=== PATIENT | female | born 1995 | race Caucasian/White ===

== ENCOUNTER 2021-12-04 16:07 | Emergency (ER) | payer OTHER, SELFPAY ==
--- NOTE | ~2021-12-04 | US_ITS ---
EXAMINATION: US OB <=14 wk fetus w TV DATE: 12/04/2021 17:18 INDICATION: Vaginal bleeding. First trimester. TECHNIQUE: Real-time transabdominal and transvaginal pelvic ultrasound was performed. COMPARISON: None. FINDINGS: TRANSABDOMINAL ULTRASOUND: The uterus measures 8.5 x 5.7 x 4.3 cm. TRANSVAGINAL ULTRASOUND: There is an intrauterine gestational sac. A yolk sac is identified. The fet al crown rump length measures 4 mm, which correlates with an estimated gestational age of 6 weeks and 1 day(s) (+/-) 4 day(s). heart motion is identified measuring 108 beats per minute (bpm) by M- mode Doppler. The right ovary measures 2.2 x 2.4 x 2.2 cm. The left ovary measures 5.6 x 4.1 x 3.3 cm . There is a 5.0 cm cyst with mildly thickened septations and low-level echoes in left ovary. There i s no free fluid in the pelvis. IMPRESSION: 1. Single living intrauterine gestation with estimated date of delivery of 07/29/2022. 2. 5.0 cm cyst with mildly thickened septations and low-level echoes in left ovary. This finding is m ost likely a hemorrhagic cyst. Pelvis ultrasound is recommended in 6-12 weeks. Reviewed, dictated and finalized at location E. IMPRESSION: 1. Single living intrauterine gestation with estimated date of delivery of . 2. 5.0 cm cyst with mildly thickened septations and low-level echoes in left ov siena. This finding is most likely a hemorrhagic cyst. Pelvis ultrasound is recom mended in 6-12 weeks.
[2021-12-04 16:10] VITALS: BP 117/86; PULSE 122; RESP 16; TEMP 36.6; O2SAT 100
[2021-12-04 17:01] LABS: Basophils Percent Auto 0.6 % (0.2-1.2); Eosinophils Absolute Auto 0.5 K/mm3 (0-0.3); Eosinophils Percent Auto 7.4 % (0-4.4); Hematocrit 40.1 % (37.0-47.0); Hemoglobin 13.4 g/dL (12.0-15.0); Immature Granulocyte Absolute 0.01 K/mm3 (0.00-0.031); Immature Granulocyte Percent A 0.2 % (0-0.5); Lymphocytes Absolute Auto 1.06 K/mm3 (0.9-3.2); Lymphocytes Percent Auto 16.8 % (18.3-44.2); Mean Corpuscular HGB Conc 33.4 g/dl (32-36); Mean Corpuscular Hemoglobin 32.4 pg (26-34); Mean Corpuscular Volume 97.1 fl (80-100); Mean Platelet Volume 9.8 fl (7.4-10.4); Monocytes Absolute Auto 0.4 K/mm3 (0.1-0.6); Neutrophils Absolute Auto 4.3 K/mm3 (1.3-6.7); Platelet Count Result 270 k/mm3 (150-375); Red Blood Count 4.13 M/mm3 (4.2-5.4); Red Cell Distribution Width 11.8 % (11.5-14.5); White Blood Count 6.3 K/mm3 (4.5-10.0)
--- NOTE | 2021-12-04 17:03 | PC.NURSE ---
pt to ultrasound via stretcher
--- NOTE | 2021-12-04 17:29 | ED.GENADULT ---
HPI - General Adult General Chief complaint: Vaginal Bleeding Stated complaint: 7wks preg, bleeding Time Seen by Provider: 12/04/21 16:31 History of Present Illness HPI narrative: Patient is a 26-year-old G4, P3 female who is currently about 7 weeks who presents for 5 days of vaginal bleeding. She states that the bleeding began as spotting but has progressed in severity and now is like a normal period. Denies blood clots. Additionally reporting some mild cramping which she likens to a menstrual cramp. She has been seen by OB for her first visit but has not had an ultrasound yet to confirm IUP. She denies any vaginal discharge, dysuria, hematuria, fevers. She reports she was told to go to the hospital last evening, which she did, but she left without being seen. Review of Systems Review of Systems: Gen.: Denies fevers or chills Eyes: Denies eye pain or visual change ENT: Denies congestion Respiratory: Denies shortness of breath or cough CV: Denies chest pain or palpitations GI: Denies abdominal pain nausea, emesis or diarrhea positive for vaginal bleeding. Denies burning, urgency, frequency or hematuria Musculoskeletal: Denies back pain or muscle pain Neuro: Denies numbness, tingling, weakness or focal weakness Skin: Denies rash Except as documented, all other systems reviewed and negative All systems reviewed & are unremarkable except as noted in HPI and below Exam Narrative: APPEARANCE: Well appearing, no pain in distress, well-nourished. Head normocephalic atraumatic. EYES: PERRLA/EOMI, conjunctivae very clear. NOSE: Normal no drainage THROAT: Pharynx clear, no exudate. NECK: Supple. No adenopathy, no masses. RESPIRATORY: Airway patent, respirations nonlabored. Clear to auscultation bilaterally, no rales, rhonchi, wheezing. : Internal pelvic exam reveals scant amount of blood in the vaginal vault with no blood clots or products of conception visualized. Cervical os is closed. She has no adnexal tenderness or cervical motion tenderness. No adnexal mass palpated. CARDIOVASCULAR: Regular rate and rhythm without murmurs rubs or gallops. ABDOMINAL: Soft, nontender, nondistended, no hepatosplenomegaly MUSCULOSKELETAl: Moves all extremities. Strength/ROM intact, No edema, No calf tenderness. NEURO: Alert. Good gait. Good coordination SKIN:: Warm, dry. Normal Color PSYCHIATRIC: Normal affect/mood. Course Vital Signs Vital signs: Vital Signs Temperature 97.8 F 12/04/21 16:10 Pulse Rate 122 H 12/04/21 16:10 Respiratory Rate 16 12/04/21 16:10 Blood Pressure 117/86 12/04/21 16:10 Pulse Oximetry 100 12/04/21 16:10 Temperature 97.8 F 12/04/21 16:10 Pulse Rate 122 H 12/04/21 16:10 Respiratory Rate 16 12/04/21 16:10 Blood Pressure 117/86 12/04/21 16:10 Pulse Oximetry 100 12/04/21 16:10 Medical Decision Making MDM Narrative Medical decision making narrative: 26-year-old G4, P3 female who is currently 7 weeks here for evaluation of vaginal bleeding over the past 6 days. Vital signs stable, hemoglobin/hematocrit 13.4/40.1, no indication for RhoGam as patient is A positive. Patient is nontoxic-appearing, with no abdominal tenderness on exam, and a closed cervical os on pelvic exam. Ultrasound reveals IUP with evidence of a hemorrhagic cyst. Will have patient follow-up with her OB doctor for monitoring her hemorrhagic cyst and for follow up of threatened AB. Advised pelvic rest and discussed return precautions. Vital Signs Vital Signs: Vital Signs Temperature 97.8 F 12/04/21 16:10 Pulse Rate 122 H 12/04/21 16:10 Respiratory Rate 16 12/04/21 16:10 Blood Pressure 117/86 12/04/21 16:10 Pulse Oximetry 100 12/04/21 16:10 Temperature 97.8 F 12/04/21 16:10 Pulse Rate 122 H 12/04/21 16:10 Respiratory Rate 16 12/04/21 16:10 Blood Pressure 117/86 12/04/21 16:10 Pulse Oximetry 100 12/04/21 16:10 Lab Data Result diagrams: 12/04/21 16:54
== END 2021-12-04 18:50 | disposition home or self-care (01) ==
PROVIDERS: Emergency Provider Emergency Medicine; PCP Internal Medicine
DX: O20.0 Threatened abortion (principal); O34.81 Maternal care for other abnormalities of pelvic organs, first trimester; N83.202 Unspecified ovarian cyst, left side; Z3A.01 Less than 8 weeks gestation of pregnancy
CPT/HCPCS: 36415; 76801; 76817; 84702; 85025; 85461; 99284

== ENCOUNTER 2021-12-05 18:35 | Emergency (ER) | payer OTHER, SELFPAY ==
[2021-12-05 18:36] VITALS: BP 125/92; PULSE 119; RESP 18; TEMP 36.2; O2SAT 99
--- NOTE | 2021-12-05 19:57 | PC.NURSE ---
EDP at bedside with ultrasound
[2021-12-05 19:58] VITALS: PULSE 109; RESP 18; O2SAT 100
[2021-12-05 20:11] LABS: Basophils Percent Auto 0.5 % (0.2-1.2); Eosinophils Absolute Auto 0.3 K/mm3 (0-0.3); Eosinophils Percent Auto 4.6 % (0-4.4); Hematocrit 39.7 % (37.0-47.0); Hemoglobin 13.3 g/dL (12.0-15.0); Immature Granulocyte Absolute 0.01 K/mm3 (0.00-0.031); Immature Granulocyte Percent A 0.2 % (0-0.5); Lymphocytes Absolute Auto 1.31 K/mm3 (0.9-3.2); Lymphocytes Percent Auto 20.3 % (18.3-44.2); Mean Corpuscular HGB Conc 33.5 g/dl (32-36); Mean Corpuscular Hemoglobin 32.2 pg (26-34); Mean Corpuscular Volume 96.1 fl (80-100); Mean Platelet Volume 10.1 fl (7.4-10.4); Monocytes Absolute Auto 0.5 K/mm3 (0.1-0.6); Neutrophils Absolute Auto 4.3 K/mm3 (1.3-6.7); Neutrophils Percent Auto 66.4 % (45.5-73.1); Platelet Count Result 289 k/mm3 (150-375); Red Blood Count 4.13 M/mm3 (4.2-5.4); Red Cell Distribution Width 11.9 % (11.5-14.5); White Blood Count 6.5 K/mm3 (4.5-10.0)
[2021-12-05] MEDS: SODIUM CHLORIDE 0.9% IV 1,000 ML 999 ML IV CONT (20:35)
[2021-12-05 20:45] LABS: Anion Gap 8 mmol/L (8-16); Blood Urea Nitrogen 10 mg/dL (7-17); Calcium 9.3 mg/dL (8.4-10.2); Carbon Dioxide 27 mmol/L (22-30); Chloride 102 mmol/L (98-107); Estimated CRCL calculation 107 ml/min; Estimated Glomerular Filt Rate > 60; Glucose 163 mg/dL (65-110); Potassium 3.9 mmol/L (3.4-5.0); Sodium 137 mmol/L (137-145)
--- NOTE | 2021-12-05 20:57 | PC.NURSE ---
This RN spoke with pt and about options for disposal of products of conception. Pt and both denied wanting burial/cremation, and stated that they want facility to handle the products. OB storage battery charger at bedside at this time.
--- NOTE | 2021-12-05 21:03 | PC.NURSE ---
Per OB, pt denied wanting genetic testing. Pt declined SHARE program participation.
--- NOTE | 2021-12-05 21:10 | ED.FEMALEGU ---
HPI - Female Genitourinary General Chief complaint: Vaginal Bleeding Stated complaint: 6 wks , bleeding Time Seen by Provider: 12/05/21 19:27 History of Present Illness HPI Narrative: Patient is a 26-year-old female who presents ER with vaginal bleeding. Patient is 6 weeks in . Evaluated yesterday. Blood type a positive. Found to have an IUP with hemorrhagic cyst. Patient reports increased bleeding this afternoon with increased cramping. Patient did pass what she thinks is tissue because there is a clear spherical structure that passed. Patient still having some cramping and bleeding. No loss of consciousness. Related Data Home Medications Medication Instructions Recorded Confirmed vit no.[id number] tablet PO 12/05/21 [Alive ] Allergies Allergy/AdvReac Type Severity Reaction Status Date / Time Latex, Natural Rubber Allergy Hives Verified 12/05/21 18:39 Review of Systems Review of Systems: All systems reviewed & are unremarkable except as noted in HPI and below Constitutional: Constitutional: Denies chills and Denies fatigue Gastrointestinal: Gastrointestinal: Reports abdominal pain, Denies diarrhea, Denies nausea and Denies vomiting Genitourinary: Genitourinary: Reports abnormal vaginal bleeding, Denies nocturia, Denies dysuria, Denies flank pain and Denies vaginal discharge Neurologic: Denies headache(s), Denies focal weakness and Denies numbness PMFSH Past Medical History Medical History (Updated 12/05/21 @ 21:15 by Rashad Mcguire MD) Healthy female adult Surgical History Surgical History (Updated 12/05/21 @ 21:13 by Rashad Mcguire MD) No pertinent past surgical history Exam Narrative: GENERAL: Well-appearing, well-nourished, and in no acute distress. HEAD: Normocephalic, atraumatic. EYES: PERRL and EOMI. CHEST: Clear to auscultation. No respiratory distress. HEART: Regular rate and rhythm. Normal peripheral pulses. ABDOMEN: Soft, nontender, nondistended. : Small amount of clot within the vagina with cervical os open 1 cm with clot present. No hemorrhage. No discharge. Normal external genitalia. EXTREMITIES: Normal range of motion. No edema. SKIN: Warm, dry, no rash. NEURO: Alert and oriented x3. PSYCH: Normal mood and affect. Course Course Emergency Course: It does appear patient's past gestational sac with pole as she brought into the ER for evaluation. hCG quant is going down. Discussed with patient is felt she had a miscarriage. Contacted patient's OB Dr. Weir who would like her to follow-up this week. Patient given bleeding precautions. Will discharge with some pain medication. Unable to obtain formal ultrasound as patient had a known IUP previously and they are not currently in the hospital. Vital Signs Vital signs: Vital Signs Temperature 97.1 F L 12/05/21 18:36 Pulse Rate 119 H 12/05/21 18:36 Respiratory Rate 18 12/05/21 18:36 Blood Pressure 125/92 H 12/05/21 18:36 Pulse Oximetry 99 12/05/21 18:36 Temperature 97.1 F L 12/05/21 18:36 Pulse Rate 109 H 12/05/21 19:58 Respiratory Rate 18 12/05/21 19:58 Blood Pressure 125/92 H 12/05/21 18:36 Pulse Oximetry 100 12/05/21 19:58 MDM - Female Genitourinary Lab Data Result diagrams: 12/05/21 20:03 12/05/21 20:03 Labs: Lab Results 12/05/21 12/05/21 12/05/21 Range/Units 20:03 20:03 20:03 WBC 6.5 (4.5-10.0) K/mm3 RBC 4.13 L (4.2-5.4) M/mm3 Hgb 13.3 (12.0-15.0) g/dL Hct 39.7 (37.0-47.0) % MCV 96.1 (80-100) fl MCH 32.2 (26-34) pg MCHC 33.5 (32-36) g/dl RDW 11.9 (11.5-14.5) % Plt Count 289 (150-375) k/mm3 MPV 10.1 (7.4-10.4) fl Immature Gran % (Auto) 0.2 (0-0.5) % Neut % (Auto) 66.4 (45.5-73.1) % Lymph % (Auto) 20.3 (18.3-44.2) % [place] % (Auto) 8.0 (2.6-8.5) % Eos % (Auto) 4.6 H (0-4.4) % Baso % (Auto) 0.5 (0.2-1.2) % Ly
[2021-12-05 21:28] VITALS: BP 115/86; PULSE 75; RESP 16; O2SAT 100
== END 2021-12-05 21:46 | disposition home or self-care (01) ==
PROVIDERS: Physician Assistant; Emergency Provider Emergency Medicine
DX: O03.9 Complete or unspecified spontaneous abortion without complication (principal)
CPT/HCPCS: 36415; 80048; 84702; 85025; 88305; 96360; 99284; J7030

== ENCOUNTER 2022-09-24 09:35 | Inpatient (IN) | payer OTHER, SELFPAY ==
[2022-09-24] VITALS (92 sets, daily range): BP systolic 95–129; BP diastolic 58–88; PULSE 62–102; RESP 12–19; TEMP 35.6–36.4; O2SAT 98–100; BMI 27.3
--- NOTE | 2022-09-24 09:35 | LDADM ---
This patient, Breann Mckeon, was admitted to Labor/Delivery/Recovery 120 on 09/24/22 at 10:02. Plans for labor, pain management and were discussed with patient. Patient/family oriented to hospital policies and general routines including ID bracelet, bed and alarms, visiting hours, pain management, procedures, bathroom and other care routines, personal items, smoking policy, room service/diet and guest tray routines, infant security routines, and visiting hours. Patient/Family are encouraged to report perceived risks to care and to ask questions if they do not understand what they are told or what they should do. See OBIX for further documentation.
--- NOTE | 2022-09-24 10:00 | PC.NURSE ---
0828-Pt called unit stating that she was bleeding a lot . She was asked if it was enough to call an ambulance, and she stated that it was. Instructed to hang up and call 911. 0935-Pt arrived on unit per personal vehicle and stated that she was mary. Upon assessment, pt was bleeding a large amount. FHTs in the 90s and uterine activity appears to be an abruption pattern. 0957-Chip Emanuel CNM called down to unit. 59-Dr. Weir called in. 958-automotive fleet supervisor called down. 1000- information technology associate called in.
[2022-09-24] MEDS: LACTATED RINGERS 1,000 ML 125 ML IV CONT ×2 (10:04→11:10)
[2022-09-24 10:19] LABS: Basophils Absolute Auto 0.1 K/mm3 (0.0-0.1); Basophils Percent Auto 0.4 % (0.2-1.2); Eosinophils Absolute Auto 0.1 K/mm3 (0-0.3); Eosinophils Percent Auto 0.7 % (0-4.4); Hematocrit 29.8 % (37.0-47.0); Hemoglobin 8.8 g/dL (12.0-15.0); Immature Granulocyte Absolute 0.08 K/mm3 (0.00-0.031); Immature Granulocyte Percent A 0.5 % (0-0.5); Lymphocytes Absolute Auto 2.73 K/mm3 (0.9-3.2); Lymphocytes Percent Auto 16.2 % (18.3-44.2); Mean Corpuscular HGB Conc 29.5 g/dl (32-36); Mean Corpuscular Hemoglobin 25.7 pg (26-34); Mean Corpuscular Volume 86.9 fl (80-100); Mean Platelet Volume 11.5 fl (7.4-10.4); Monocytes Absolute Auto 0.7 K/mm3 (0.1-0.6); Monocytes Percent Auto 4.2 % (2.6-8.5); Neutrophils Absolute Auto 13.2 K/mm3 (1.3-6.7); Platelet Count Result 211 k/mm3 (150-375); Red Blood Count 3.43 M/mm3 (4.2-5.4); Red Cell Distribution Width 14.2 % (11.5-14.5); White Blood Count 16.9 K/mm3 (4.5-10.0)
[2022-09-24] MEDS: ceFAZolin 2 GM/D5W 50 ML 2 GM/50 ML BAG IVPB (10:25)
[2022-09-24 10:36] LABS: Partial Thromboplastin Time 24.3 SECONDS (22.3-36.8)
--- NOTE | 2022-09-24 11:11 | W.PM.PROC2 ---
Procedure Note - Detailed Date of Procedure 09/24/22 Pre-op Diagnosis contractions, obstetric hemorrhage, 35 week gestation, non-reassuring heart tones Post-op Diagnosis Same ( placental abruption) Procedure Performed Crash/stat Low-transverse section Surgeon Ann Weir MD Anesthesia Spinal Indications obstetric hemorrhage in the 3rd trimester, painful contractions, nonreassuring heart tones Findings Normal gestational maternal anatomy, average size infant, normal Apgars. Description of Procedure The patient was taken the operating room. She was prepped and draped in dorsal supine position with a leftward tilt. skin incision was made with scalpel carried down to the fascia quickly, this fascia was scored. The fascia was incised digitally. The peritoneal cavity was entered bluntly. The uterus was scored with scalpel. The uterus and the amniotic cavity was entered bluntly. The was delivered. this took less than 30 seconds. The cord was clamped and cut and the infant was handed off to waiting pediatric staff. Cord bloods were obtained. The placenta was removed manually. The uterus was exteriorized. The uterus was cleared of all clots, debris and membranes. The uterus was closed in 0 Vicryl running lock fashion. An imbricating over a was placed along the incision line as well. The uterus was returned to the abdomen. The gutters were cleared of all clots and debris. The fascia was closed with 0 Vicryl running fashion. The subcutaneous tissue was irrigated pinpoint bleeders were cauterized. The skin was closed with subcuticular absorbable chinedu. The skin incision line was covered with glue. The patient tolerated the procedure well. She has taken recovery room in stable condition. Sponge lap and needle counts were correct x2. Estimated Blood Loss 470 Complications No immediate complications Condition Stable Disposition PACU
--- NOTE | 2022-09-24 11:25 | PM.IMHP ---
H&P: HPI History of Present Illness Date/Time: 09/24/22 11:25 Chief Complaint: vaginal bleeding Narrative: this patient is a 26-year-old multiparous female with previous delivery but also subsequent vaginal delivery. She presented with vaginal hemorrhage. She was known to be 35 weeks gestation. Initially there was a heart rate rate deceleration. The heart tones recovered quickly and were very reassuring throughout the preparation phase of the delivery. She was monitored straight up to the delivery. Monitoring was disrupted only briefly at times. Review of Systems Review of Systems: All systems reviewed & are unremarkable except as noted in HPI and below Constitutional: Constitutional: Denies chills, Denies fatigue, Denies fever(s) and Denies weakness Eyes: Eyes: Denies blurry vision, Denies change in vision, Denies loss of peripheral vision, Denies loss of vision, Denies other visual disturbances and Denies eye pain ENT: Denies vertigo, Denies dizziness, Denies hearing loss, Denies mouth pain, Denies nasal obstruction, Denies neck mass and Denies neck pain Cardiovascular: Cardiovascular: Denies chest pain, Denies diaphoresis, Denies syncope, Denies leg edema and Denies dyspnea Respiratory: Respiratory: Denies chest congestion, Denies cough, Denies hemoptysis, Denies dyspnea and Denies wheezing Gastrointestinal: Gastrointestinal: Denies abdominal pain, Denies constipation, Denies diarrhea, Denies nausea and Denies vomiting Genitourinary: Genitourinary: Denies hematuria, Denies change in libido, Denies nocturia, Denies genital lesions, Denies flank pain and Denies urinary urgency Musculoskeletal: Musculoskeletal: Denies abnormal gait, Denies back pain, Denies myalgias, Denies arthralgias, Denies joint swelling, Denies muscle weakness and Denies neck pain Integumentary/Breasts: Skin/Breast: Denies swelling, Denies breast pain, Denies breast mass, Denies dry skin, Denies nipple discharge, Denies unusual bruising and Denies jaundice Neurologic: Denies Neuro-related abnormal movements, Denies Abnormal speech present, Denies abnormal gait, Denies behavioral changes, Denies confusion, Denies vertigo, Denies dizziness, Denies syncope, Denies loss of vision, Denies memory loss, Denies convulsions and Denies weakness Psychiatric: Psychiatric: Denies abnormal sleep pattern, Denies behavioral changes, Denies change in libido, Denies confusion, Denies depression, Denies anhedonia and Denies memory loss Endocrine: Endocrine: Reports no additional endocrine complaints, Denies change in libido and Denies fatigue Hematologic/Lymphatic: Hematologic/Lymphatic: Reports no additional hematologic/lymphatic complaints Allergic/Immunologic: Allergic/Immunologic: Reports no additional allergic/immunologic complaints and Denies wheezing PMFSH Past Medical History Medical History (Updated 09/24/22 @ 11:27 by Ann Weir MD) Healthy female adult Surgical History Surgical History (Updated 12/05/21 @ 21:13 by Rashad Mcguire MD) No pertinent past surgical history Meds Home Medications and Allergies Home Medications Medication Instructions Recorded Confirmed Type vitamin no.138-folic acid tablet PO 12/05/21 History 400 mcg-dha 25 mg chewable tablet Allergies Allergy/AdvReac Type Severity Reaction Status Date / Time Latex, Natural Rubber Allergy Hives Verified 12/05/21 18:39 Vital Signs Vital Signs - 24 hr 09/24/22 09:54 09/24/22 09:58 09/24/22 09:59 Pulse Rate 63 Blood Pressure 110/74 Pulse Oximetry 98 100 09/24/22 10:00 09/24/22 10:04 09/24/22 10:09 Pulse Rate 65 Blood Pressure 109/83 Pulse Oximetry 100 100 09/24/22 11:14 09/24/22 11:15 09/24/22 11:16 Pulse Rate 102 H 99 Blood Pressure 106/67 101/65 Pulse Oximetry 100 09/24/22 11:19 09/24/22 11:20 09/24/22 11:24 Pulse Rate 95 Blood Pressure 103/69 Pulse Oximetry 100 100 Exam
[2022-09-24] MEDS: SODIUM CHLORIDE 0.9% IV 250 ML 30 ML IV CONT (11:35)
--- NOTE | 2022-09-24 11:39 | SUR.PHASEI ---
Froilan placed on pt.
--- NOTE | 2022-09-24 11:39 | WPDANESEPP ---
Anes - Eval Pre Procedure Procedure: c/s Date/Time: 09/24/22 1005 Preop Diagnosis: abruption Pre Op Diagnosis: contractions Patient Data Age: 26 Gender: F Height: 1.65 m Weight: 74.5 kg Last Vital Signs Temp 35.7 C L 09/24/22 11:34 Pulse 93 09/24/22 11:36 Resp 16 09/24/22 11:34 BP 102/65 09/24/22 11:36 Pulse Ox 100 09/24/22 11:39 Allergies Allergy/AdvReac Type Severity Reaction Status Date / Time Latex, Natural Rubber Allergy Hives Verified 12/05/21 18:39 Home Medications Medication Instructions Recorded Confirmed Type vitamin no.138-folic acid tablet PO 12/05/21 History 400 mcg-dha 25 mg chewable tablet Laboratory Tests 09/24/22 09/24/22 09/24/22 10:11 10:12 10:12 WBC 16.9 K/mm3 H K/mm3 (4.5-10.0) RBC 3.43 M/mm3 L M/mm3 (4.2-5.4) Hgb 8.8 g/dL L D g/dL (12.0-15.0) Hct 29.8 % L % (37.0-47.0) MCV 86.9 fl fl (80-100) MCH 25.7 pg L pg (26-34) MCHC 29.5 g/dl L g/dl (32-36) RDW 14.2 % % (11.5-14.5) Plt Count 211 k/mm3 k/mm3 (150-375) MPV 11.5 fl H fl (7.4-10.4) Immature Gran % (Auto) 0.5 % % (0-0.5) Neut % (Auto) 78.0 % H % (45.5-73.1) Lymph % (Auto) 16.2 % L % (18.3-44.2) [place] % (Auto) 4.2 % % (2.6-8.5) Eos % (Auto) 0.7 % % (0-4.4) Baso % (Auto) 0.4 % % (0.2-1.2) Lymph # (Auto) 2.73 K/mm3 K/mm3 (0.9-3.2) [place] # (Auto) 0.7 K/mm3 H K/mm3 (0.1-0.6) Eos # (Auto) 0.1 K/mm3 K/mm3 (0-0.3) Baso # (Auto) 0.1 K/mm3 K/mm3 (0.0-0.1) Abs Immat Gran (auto) 0.08 K/mm3 H K/mm3 (0.00-0.031) Absolute Neuts (auto) 13.2 K/mm3 H K/mm3 (1.3-6.7) Absolute Nucleated RBC 0.0 K/mm3 K/mm3 (0.0-0.012) Nucleated RBC % 0.0 % % (0.0-0.2) PT INR APTT RPR Pending Blood Type A Positive Antibody Screen Negative Crossmatch See Detail 09/24/22 10:12 WBC RBC Hgb Hct MCV MCH MCHC RDW Plt Count MPV Immature Gran % (Auto) Neut % (Auto) Lymph % (Auto) [place] % (Auto) Eos % (Auto) Baso % (Auto) Lymph # (Auto) [place] # (Auto) Eos # (Auto) Baso # (Auto) Abs Immat Gran (auto) Absolute Neuts (auto) Absolute Nucleated RBC Nucleated RBC % PT 13.0 Seconds Seconds (11.1-14.7) INR 1.0 APTT 24.3 SECONDS SECONDS (22.3-36.8) RPR Blood Type Antibody Screen Crossmatch Patient hx anesthesia problems: none Family hx anesthesia problems: none Results Review: All pre-operative results and documents have been reviewed as part of the pre-operative evaluation. [facility] Past Medical History Medical History Healthy female adult Surgical History Surgical History No pertinent past surgical history Exam Day of Procedure 09/24/22 11:39 Patient weight: normal Heart: regular rate and rhythm Lungs: clear to auscultation and normal air movement Airway: Mallampati scale class II Neurological: alert and oriented
[2022-09-24 12:04] LABS: D Dimer > 20.00 ug/mL (<0.48)
[2022-09-24 12:16] LABS: Fibrinogen 290 mg/dl (215-510)
[2022-09-24] MEDS: OXYTOCIN 30 UNITS/NS 500 ML 30 UNITS/500 ML BAG 125 UNITS IV CONT (12:44)
[2022-09-24 13:07] LABS: Hematocrit 31.5 % (37.0-47.0); Hemoglobin 9.9 g/dL (12.0-15.0); Mean Corpuscular HGB Conc 31.4 g/dl (32-36); Mean Corpuscular Hemoglobin 27.7 pg (26-34); Mean Platelet Volume 11.7 fl (7.4-10.4); Platelet Count Result 153 k/mm3 (150-375); Red Blood Count 3.58 M/mm3 (4.2-5.4); White Blood Count 17.9 K/mm3 (4.5-10.0)
[2022-09-24 13:21] LABS: Amphetamine Screen Urine Negative (Negative); Barbiturate Screen Urine Negative (Negative); Benzodiazepines Screen Urine Negative (Negative); Cannabinoid Screen Urine Negative (Negative); Cocaine Screen Urine Negative (Negative); Methadone Screen Urine Negative (Negative); Opiate Screen Urine Positive (Negative); Phencyclidine Screen Urine Negative (Negative)
--- NOTE | 2022-09-24 13:30 | SUR.PHASEI ---
Called Louis Solis CRNA with lab results. Orders received.
[2022-09-24] MEDS: KETOROLAC 30 MG/ML VIAL (*BKC) IV PUSH (17:35)
[2022-09-24 18:07] LABS: Hematocrit 29.3 % (37.0-47.0); Hemoglobin 9.3 g/dL (12.0-15.0); Mean Corpuscular HGB Conc 31.7 g/dl (32-36); Mean Corpuscular Hemoglobin 27.9 pg (26-34); Mean Platelet Volume 11.7 fl (7.4-10.4); Platelet Count Result 147 k/mm3 (150-375); Red Blood Count 3.33 M/mm3 (4.2-5.4); White Blood Count 13.4 K/mm3 (4.5-10.0)
[2022-09-24 18:59] LABS: HIV 1/2 Ab P24 Ag Result Negative (Negative)
[2022-09-24 19:08] LABS: D Dimer 19.53 ug/mL (<0.48)
[2022-09-25 04:30] VITALS: BP 129/94; PULSE 93; RESP 16; TEMP 36.7
[2022-09-25] MEDS: IBUPROFEN 600 MG TABLET PO ×3 (04:46→21:19)
[2022-09-25] MEDS: HYDROcodone/acetaminophen (*CRX) 5-325 MG TABLET 1 TAB PO ×3 (04:46→21:20)
[2022-09-25 07:04] LABS: Basophils Percent Auto 0.2 % (0.2-1.2); Eosinophils Absolute Auto 0.1 K/mm3 (0-0.3); Eosinophils Percent Auto 0.5 % (0-4.4); Hemoglobin 8.2 g/dL (12.0-15.0); Immature Granulocyte Absolute 0.04 K/mm3 (0.00-0.031); Immature Granulocyte Percent A 0.4 % (0-0.5); Lymphocytes Absolute Auto 1.43 K/mm3 (0.9-3.2); Lymphocytes Percent Auto 13.8 % (18.3-44.2); Mean Corpuscular HGB Conc 31.5 g/dl (32-36); Mean Corpuscular Hemoglobin 27.5 pg (26-34); Mean Corpuscular Volume 87.2 fl (80-100); Mean Platelet Volume 12.1 fl (7.4-10.4); Monocytes Absolute Auto 0.6 K/mm3 (0.1-0.6); Monocytes Percent Auto 6.2 % (2.6-8.5); Neutrophils Absolute Auto 8.2 K/mm3 (1.3-6.7); Neutrophils Percent Auto 78.9 % (45.5-73.1); Platelet Count Result 161 k/mm3 (150-375); Red Blood Count 2.98 M/mm3 (4.2-5.4); Red Cell Distribution Width 14.4 % (11.5-14.5); White Blood Count 10.4 K/mm3 (4.5-10.0)
[2022-09-25 07:45] VITALS: BP 112/77; PULSE 74; RESP 14; TEMP 36.6; O2SAT 98
[2022-09-25] MEDS: DOCUSATE SODIUM 100 MG CAPSULE PO ×2 (07:45→16:00)
[2022-09-25] MEDS: POLYSACCHARIDE IRON COMPLEX 150 MG CAPSULE PO ×2 (07:45→16:00)
[2022-09-25] MEDS: MULTIVIT/MIN/PREN/FOL AC/IRON TABLET 1 TAB PO (07:45)
[2022-09-25 10:02] VITALS: PULSE 74; RESP 16; O2SAT 98
--- NOTE | 2022-09-25 10:07 | PM.OBPNVD ---
OB - PN: Subj Subjective Date/time seen: 09/25/22 10:07 s/p section day 1, baby transferred OB - PN: Obj Data Labs 09/25/22 04:32 Labs: Laboratory Results - last 24 hr 09/24/22 09/24/22 09/24/22 10:11 10:11 10:12 WBC 16.9 H RBC 3.43 L Hgb 8.8 L D Hct 29.8 L MCV 86.9 MCH 25.7 L MCHC 29.5 L RDW 14.2 Plt Count 211 MPV 11.5 H Immature Gran % (Auto) 0.5 Neut % (Auto) 78.0 H Lymph % (Auto) 16.2 L [place] % (Auto) 4.2 Eos % (Auto) 0.7 Baso % (Auto) 0.4 Lymph # (Auto) 2.73 [place] # (Auto) 0.7 H Eos # (Auto) 0.1 Baso # (Auto) 0.1 Abs Immat Gran (auto) 0.08 H Absolute Neuts (auto) 13.2 H Absolute Nucleated RBC 0.0 Nucleated RBC % 0.0 PT INR APTT Fibrinogen D-Dimer Urine Opiates Screen Urine Methadone Screen Ur Barbiturates Screen Ur Phencyclidine Scrn Ur Amphetamine Screen U Benzodiazepines Scrn Urine Cocaine Screen U Cannabinoids Screen HIV 1&2 Ab/P24 Ag 4thGn Blood Type A Positive Antibody Screen Negative KB Hemoglobin Negative Crossmatch See Detail 09/24/22 09/24/22 09/24/22 10:12 10:12 12:51 WBC RBC Hgb Hct MCV MCH MCHC RDW Plt Count MPV Immature Gran % (Auto) Neut % (Auto) Lymph % (Auto) [place] % (Auto) Eos % (Auto) Baso % (Auto) Lymph # (Auto) [place] # (Auto) Eos # (Auto) Baso # (Auto) Abs Immat Gran (auto) Absolute Neuts (auto) Absolute Nucleated RBC Nucleated RBC % PT 13.0 INR 1.0 APTT 24.3 Fibrinogen 290 D-Dimer > 20.00 H Urine Opiates Screen Positive A Urine Methadone Screen Negative Ur Barbiturates Screen Negative Ur Phencyclidine Scrn Negative Ur Amphetamine Screen Negative U Benzodiazepines Scrn Negative Urine Cocaine Screen Negative U Cannabinoids Screen Negative HIV 1&2 Ab/P24 Ag 4thGn Blood Type Antibody Screen KB Hemoglobin Crossmatch 09/24/22 09/24/22 09/24/22 12:51 17:42 17:42 WBC 17.9 H 13.4 H RBC 3.58 L 3.33 L Hgb 9.9 L 9.3 L Hct 31.5 L 29.3 L MCV 88.0 88.0 MCH 27.7 D 27.9 MCHC 31.4 L 31.7 L RDW 14.0 14.0 Plt Count 153 147 L MPV 11.7 H 11.7 H Immature Gran % (Auto) Neut % (Auto) Lymph % (Auto) [place] % (Auto) Eos % (Auto) Baso % (Auto) Lymph # (Auto) [place] # (Auto) Eos # (Auto) Baso # (Auto) Abs Immat Gran (auto) Absolute Neuts (auto) Absolute Nucleated RBC Nucleated RBC % PT INR APTT Fibrinogen D-Dimer Urine Opiates Screen Urine Methadone Screen Ur Barbiturates Screen Ur Phencyclidine Scrn Ur Amphetamine Screen U Benzodiazepines Scrn Urine Cocaine Screen U Cannabinoids Screen HIV 1&2 Ab/P24 Ag 4thGn Negative Blood Type Antibody Screen KB Hemoglobin Crossmatch 09/24/22 09/25/22 17:42 04:32 WBC 10.4 H RBC 2.98 L Hgb 8.2 L Hct 26.0 L MCV 87.2 MCH 27.5 MCHC 31.5 L RDW 14.4 Plt Count 161 MPV 12.1 H Immature Gran % (Auto) 0.4 Neut % (Auto) 78.9 H Lymph % (Auto) 13.8 L [place] % (Auto) 6.2 Eos % (Auto) 0.5 Baso % (Auto) 0.2 Lymph # (Auto) 1.43 [place] # (Auto) 0.6 Eos # (Auto) 0.1 Baso # (Auto) 0.0 Abs Immat Gran (auto) 0.04 H Absolute Neuts (auto) 8.2 H Absolute Nucleated RBC 0.0 Nucleated RBC % 0.0 PT INR APTT Fibrinogen D-Dimer 19.53 H Urine Opiates Screen Urine Methadone Screen Ur Barbiturates Screen Ur Phencyclidine Scrn Ur Amphetamine Screen U Benzodiazepines Scrn Urine Cocaine Screen U Cannabinoids Screen HIV 1&2 Ab/P24 Ag 4thGn Blood Type Antibody Screen KB Hemoglobin Crossmatch OB - PN A/P Plan day: 1 Time Spent With Patient Time: Total time spent is greater than 50% in coordination o
--- NOTE | 2022-09-25 11:32 | WPDANESPN ---
Anes - Prog Note Post-Op Date/Time: 09/25/22 11:32 Cardiovascular status: normal Respiratory status: normal Airway patency: baseline Mental status: baseline Post-Op hydration status: normal Vital Signs: Last Vital Signs Temp 36.7 C 09/25/22 04:30 Pulse 74 09/25/22 10:02 Resp 16 09/25/22 10:02 BP 129/94 H 09/25/22 04:30 Pulse Ox 98 09/25/22 10:02 O2 Del Method Room Air 09/25/22 10:02 Pain Score (VAS): 210 I/O: Intake & Output 09/24/22 09/25/22 09/25/22 23:59 07:59 15:59 Intake Total 950 500 500 Output Total 150 500 Balance 800 0 500 Laboratory Tests 09/25/22 04:32 09/24/22 09/24/22 09/24/22 10:11 10:12 10:12 WBC RBC Hgb Hct MCV MCH MCHC RDW Plt Count MPV Immature Gran % (Auto) Neut % (Auto) Lymph % (Auto) [place] % (Auto) Eos % (Auto) Baso % (Auto) Lymph # (Auto) [place] # (Auto) Eos # (Auto) Baso # (Auto) Abs Immat Gran (auto) Absolute Neuts (auto) Absolute Nucleated RBC Nucleated RBC % Fibrinogen 290 D-Dimer > 20.00 H Urine Opiates Screen Urine Methadone Screen Ur Barbiturates Screen Ur Phencyclidine Scrn Ur Amphetamine Screen U Benzodiazepines Scrn Urine Cocaine Screen U Cannabinoids Screen HIV 1&2 Ab/P24 Ag 4thGn Blood Type A Positive Antibody Screen Negative KB Hemoglobin Negative Crossmatch See Detail 09/24/22 09/24/22 09/24/22 12:51 12:51 17:42 WBC 17.9 H 13.4 H RBC 3.58 L 3.33 L Hgb 9.9 L 9.3 L Hct 31.5 L 29.3 L MCV 88.0 88.0 MCH 27.7 D 27.9 MCHC 31.4 L 31.7 L RDW 14.0 14.0 Plt Count 153 147 L MPV 11.7 H 11.7 H Immature Gran % (Auto) Neut % (Auto) Lymph % (Auto) [place] % (Auto) Eos % (Auto) Baso % (Auto) Lymph # (Auto) [place] # (Auto) Eos # (Auto) Baso # (Auto) Abs Immat Gran (auto) Absolute Neuts (auto) Absolute Nucleated RBC Nucleated RBC % Fibrinogen D-Dimer Urine Opiates Screen Positive A Urine Methadone Screen Negative Ur Barbiturates Screen Negative Ur Phencyclidine Scrn Negative Ur Amphetamine Screen Negative U Benzodiazepines Scrn Negative Urine Cocaine Screen Negative U Cannabinoids Screen Negative HIV 1&2 Ab/P24 Ag 4thGn Blood Type Antibody Screen KB Hemoglobin Crossmatch 09/24/22 09/24/22 09/25/22 17:42 17:42 04:32 WBC 10.4 H RBC 2.98 L Hgb 8.2 L Hct 26.0 L MCV 87.2 MCH 27.5 MCHC 31.5 L RDW 14.4 Plt Count 161 MPV 12.1 H Immature Gran % (Auto) 0.4 Neut % (Auto) 78.9 H Lymph % (Auto) 13.8 L [place] % (Auto) 6.2 Eos % (Auto) 0.5 Baso % (Auto) 0.2 Lymph # (Auto) 1.43 [place] # (Auto) 0.6 Eos # (Auto) 0.1 Baso # (Auto) 0.0 Abs Immat Gran (auto) 0.04 H Absolute Neuts (auto) 8.2 H Absolute Nucleated RBC 0.0 Nucleated RBC % 0.0 Fibrinogen D-Dimer 19.53 H Urine Opiates Screen Urine Methadone Screen Ur Barbiturates Screen Ur Phencyclidine Scrn Ur Amphetamine Screen U Benzodiazepines Scrn Urine Cocaine Screen U Cannabinoids Screen HIV 1&2 Ab/P24 Ag 4thGn Negative Blood Type Antibody Screen KB Hemoglobin Crossmatch Post-procedural complaints: none Patient Feedback: Patient satisfied with anesthetic care.
[2022-09-25] MEDS: SIMETHICONE 80 MG TAB.CHEW PO ×2 (12:58→21:20)
[2022-09-25 19:19] VITALS: BP 120/90; PULSE 86; RESP 16; TEMP 36.6; O2SAT 100
[2022-09-26] MEDS: HYDROcodone/acetaminophen (*CRX) 5-325 MG TABLET 1 TAB PO ×2 (05:13→12:35)
[2022-09-26] MEDS: IBUPROFEN 600 MG TABLET PO ×2 (05:14→12:36)
[2022-09-26] MEDS: SIMETHICONE 80 MG TAB.CHEW PO ×2 (05:14→07:50)
--- NOTE | 2022-09-26 07:36 | P.PNOB_ITS ---
OB - PN: Subj Subjective Date/time seen: 09/26/22 07:36 Patient comments: no complaints and pain well controlled baby status: NICU Narrative: would like DC today since baby at [facility]. OB - PN: Obj Data Labs 09/25/22 04:32 OB - PN A/P Assessment and Plan (1) delivery delivered: Code(s): O82 - Encounter for delivery without indication Status: Acute Plan day: 2 Plan: routine care and discharge home Comments: anemia- iron daily with colace. no sx anemia. Time Spent With Patient Time: Total time spent is greater than 50% in coordination of care (as documented) at patient's floor/unit and/or counseling patient: Exam Narrative: NAD abdomen soft, appropriately tender, incision CDI Extremities nontender with 1+ edema
--- NOTE | 2022-09-26 07:43 | PM.OBDSVD ---
DS: Admitting Diagnosis Discharge Date 09/26/22 Admitting Diagnosis vaginal bleeding at 35w DS: Discharge Diagnosis Discharge Diagnosis (1) delivery delivered: Code(s): O82 - Encounter for delivery without indication Status: Acute (2) Placental abruption: Code(s): O45.90 - Premature separation of placenta, unspecified, unspecified trimester Status: Acute OB - DS: Summary Hospital Course Hospital Course: Breann was admitted with vaginal bleeding at 35w. She had a delivery and it was determined she had a placental abruption. Her course was uncomplicated except for anemia, for which she is taking iron. She was discharged on POD 2 to be with the baby in the NICU. OB Procedures : Ultrasound OB Procedures Intrapartum: OB Procedures: : None Peripartum Data Delivery Method: Section Procedures: Procedures Operation Date: 09/24/22 10:20 Actual Procedure Side Surgeon p Section Ann Weir MD complications: none Status at Discharge Functional status at discharge: independent ambulation Time Spent with Patient Time attestation: Total time spent providing and/or coordinating discharge services: Exam Narrative: NAD abdomen soft, appropriately tender, incision CDI DS: Data Data Completed and Pending Pending studies at discharge: Pending at discharge 09/24/22 10:35 Surgical [PTH] Routine Discharge Plan Discharge Attending physician on discharge: Beatriz Garces Discharging Clinician: Beatriz Garces Anticipated Discharge Date/Time: 09/26/22 07:38 Patient Disposition: Home, Self-Care Activity: may shower and pelvic rest Diet: regular Patient Instructions: Antibiotic Form, How to Stop Smoking (DC), Cigarette Smoking and Your Health (GEN), How to Quit Using Smokeless Tobacco (DC) Stand Alone Forms: General Discharge Information Follow-up/Referrals: Beatriz Garces MD [Physician] - 1 Week Discharge Medications: New hydrocodone-acetaminophen 5-325 mg Tablet 1 tablet PO Q4-5H PRN (Reason: Moderate Pain (4-6)) Qty: 40 0RF ibuprofen 600 mg Tablet 600 mg PO Q6H PRN (Reason: Cramping) Qty: 60 0RF Continued Alive 400 mcg- 25 mg Tablet,Chewable 1 tablet PO DAILY Date of admission: 09/24/22 10:02 Primary Care Provider: PHYSICIAN,FOOD AND BEVERAGE ASSISTANT Admitting Provider: Beatriz Garces Attending physician on admission: Beatriz Garces. Condition: Stable
[2022-09-26] MEDS: DOCUSATE SODIUM 100 MG CAPSULE PO (07:50)
[2022-09-26] MEDS: POLYSACCHARIDE IRON COMPLEX 150 MG CAPSULE PO (07:50)
[2022-09-26 07:52] VITALS: BP 144/96; PULSE 93; TEMP 36.8; O2SAT 98
[2022-09-26] MEDS: MULTIVIT/MIN/PREN/FOL AC/IRON TABLET 1 TAB PO (07:52)
[2022-09-26 08:45] VITALS: BP 135/96; PULSE 89; RESP 15
[2022-09-26 10:51] LABS: Rapid Plasma Reagin Non-Reactive (NonReactive)
[2022-09-26] MEDS: MEASLES,MUMPS,RUBELLA VACCINE 0.5 ML VIAL SUB-Q (13:00)
--- NOTE | 2022-09-26 20:35 | PC.NURSE ---
0900 Patient viewed the discharge video Mother & Baby Care, The First Two Weeks . Patient was given the opportunity and encouraged to ask questions. Patient verbalized understanding of information shared and has been given the mother/baby guide for home reference.
[2022-09-27 09:05] VITALS: BP 132/93; PULSE 110; RESP 20; TEMP 37; O2SAT 100
== END 2022-09-26 13:12 | disposition home or self-care (01) | DRG 786 ==
LOC: ANHLDR 11:42 → ANHOB2 15:13
PROVIDERS: Advanced Practice Midwife; Nurse Anesthetist, Certified Registered; Obstetrics & Gynecology; Admitting Provider Obstetrics & Gynecology; Visit Provider Obstetrics & Gynecology
PROC: 10D00Z1 Extraction of Products of Conception, Low, Open Approach (ICD-10-PCS; CPT 59514; principal; 2022-09-24 10:20)
DX: O45.8X3 Other premature separation of placenta, third trimester (principal); O60.14X0 Preterm labor third trimester with preterm delivery third trimester, not applicable or unspecified; Z37.0 Single live birth; Z3A.35 35 weeks gestation of pregnancy; O36.8330 Maternal care for abnormalities of the fetal heart rate or rhythm, third trimester, not applicable or unspecified; O99.02 Anemia complicating childbirth; D64.9 Anemia, unspecified; O69.81X0 Labor and delivery complicated by cord around neck, without compression, not applicable or unspecified
CPT/HCPCS: 36415; 36430; 80307; 85025; 85027; 85380; 85384; 85460; 85610; 85730; 86592; 86703; 86850; 86900; 86901; 86923; 90710; A9270; G0432; J0690; J1885; J2274; J2590; J7050; J7120; P9016

== ENCOUNTER 2023-01-20 01:57 | Day surgery (SDC) | payer OTHER, SELFPAY ==
[2023-01-16 09:11] VITALS: BMI 22.4
--- NOTE | 2023-01-16 09:15 | PC.NURSE ---
Report to the Outpatient Waiting Room, entrance under the green pavilion located off [facility], at time 0600 on date 01/20/23. Planned Procedure Time: 0730. Time changes happen often and if your time is changed the preop area will call you the afternoon before. - You and your visitor will be asked to self-screen and do not enter if you have any COVID symptoms. - A mask is optional within the hospital at this time. Patients may have clear liquids (water, carbonated beverages, clear teas, apple juice) until 3 hours prior to surgery with a maximum of 20 ounces. - No food from midnight until time of surgery Take the following medications with a SIP of water the morning of surgery: SERTRALINE DO NOT STOP ANY OF YOUR OTHER PRESCRIPTION MEDICATIONS PRIOR TO SURGERY EXCEPT THE FOLLOWING Medications to discontinue per physician: N/A Date to take last dose: N/A Please no make-up, nail czech, hairspray, perfume, deodorant, or body powder the day of surgery. No jewelry (including any body piercings) or valuables the day of surgery, leave them at home. Please take a shower or bath the night before, or the morning of, surgery with an antibacterial soap. Wear comfortable, loose fitting clothing. - Jewelry must be removed prior to entering the operating room. Rings and piercings that are not removed may be cut off. - The hospital will not accept responsibility for valuables. - Please leave all valuables, including medications, at home the day of surgery. If you are going home after surgery, a licensed utility driver must drive you home. - NO public transportation without another adult if you receive anesthesia. - We recommend that an adult stay with you for 24 hours following discharge. - We also recommend that you do not drive, make important decision, drink alcoholic beverages, or take any drugs that were not prescribed by your health care provider for at least 24 hours after your discharge time. Follow any additional instructions given to you from your surgeon. If you or anyone in your household have experienced Covid symptoms in the past week, please notify your surgeon or the nurse liaison at the phone number below for possible testing. Telephone instructions given to PT - RED GONZALEZ and asked if any additional questions and then verbalized understanding. Patient advised to call surgeon office or pre surgery nurse liaison [phone] if any additional questions.
[2023-01-20] VITALS (7 sets, daily range): BP systolic 108–125; BP diastolic 75–88; PULSE 57–91; RESP 8–16; TEMP 36.6; O2SAT 98–100; BMI 22.1
[2023-01-20] MEDS: LACTATED RINGERS 1,000 ML 30 ML IV CONT ×2 (06:38→09:00)
[2023-01-20] MEDS: KETOROLAC 15 MG/ML VIAL (*BKC) IV PUSH (06:38)
[2023-01-20] MEDS: ACETAMINOPHEN 500 MG TABLET 1000 MG PO (06:38)
--- NOTE | 2023-01-20 06:39 | P.PNAN_ITS ---
Anes - Initial Pre Proc Eval Procedure: Operation Date: 01/20/23 07:30 Proposed Procedures p Laparoscopic Bilateral Salpingectomy with Left Ovarian Cystectomy, Possible Left Oophorectomy - Beatriz Garces MD Date/Time: 01/20/23 06:39 Surgeon: Beatriz Garces MD Pre Op Diagnosis: Vol Serilization, Lt Ovarian Cyst Patient Data Age: 27 Gender: F Height: 1.65 m Weight: 61.25 kg Allergies Allergy/AdvReac Type Severity Reaction Status Date / Time Latex, Natural Rubber Allergy Hives Verified 01/16/23 09:10 Home Medications Medication Instructions Recorded Confirmed Type sertraline 50 mg tablet 50 mg PO DAILY 01/16/23 01/16/23 History Patient hx anesthesia problems: none Family hx anesthesia problems: none Results Review: All pre-operative results and documents have been reviewed as part of the pre- operative evaluation. [facility] Past Medical History Medical History (Updated 01/20/23 @ 06:37 by Heriberto Kim DO) Depression Surgical History Surgical History No pertinent past surgical history Social History Social History Smoking status: Current every day smoker Tobacco type: cigarettes and e-cigarettes/vaping Additional smoking assessment comments: CURRENTLY VAPING Alcohol intake: current Alcohol use details: VERY RARE Substance use: never Substance use type: does not use Lack of Transportation: No Lack of Food: Never True Current Housing: I Have Housing Concerned About Future Housing: No Difficulty Paying Gas/Electric Bills: No Difficulty Paying for Meds: No Currently Unemployed: No Education: High School Diploma/GED Difficulty w/ Childcare or Family Care: No Living arrangements: with family Spiritual care concerns: No Anes - Eval Final PreProcedure Day of Procedure 01/20/23 06:39 Patient weight: overweight Heart: regular rate and rhythm Lungs: clear to auscultation Airway: Mallampati scale class II Neurological: alert and oriented Last oral intake: >/= 8 hours ASA classification: II Emergent: no Anesthetic plan: proceed Anesthesia type and monitoring: general ETT and standard monitoring Results Review: All pre-operative results and documents have been reviewed as part of the pre- operative evaluation. Informed Consent: The patient's anesthetic plan and its attendant risks and benefits were discussed with the patient/family/POA. Questions were solicited and answers provided to the satisfaction of the patient/family/POA.
--- NOTE | 2023-01-20 07:15 | PM.IMHP ---
H&P: HPI History of Present Illness Date/Time: 01/20/23 07:15 Chief Complaint: sterilization and large left ovarian cyst Narrative: Breann is a 27yo with h/o CS x3 who desires permanent sterilization and also has growing left ovarian cyst that was first found in her last . ON most recent US last month it was [id number], mostly simple with a couple septations. No sx from this. PMFSH Past Medical History Medical History (Updated 01/20/23 @ 07:18 by Beatriz Garces MD) Depression Surgical History Surgical History No pertinent past surgical history Social History Social History Smoking status: Current every day smoker Tobacco type: cigarettes and e-cigarettes/vaping Additional smoking assessment comments: CURRENTLY VAPING Alcohol intake: current Alcohol use details: VERY RARE Substance use: never Substance use type: does not use Lack of Transportation: No Lack of Food: Never True Current Housing: I Have Housing Concerned About Future Housing: No Difficulty Paying Gas/Electric Bills: No Difficulty Paying for Meds: No Currently Unemployed: No Education: High School Diploma/GED Difficulty w/ Childcare or Family Care: No Living arrangements: with family Spiritual care concerns: No Meds Home Medications and Allergies Home Medications Medication Instructions Recorded Confirmed Type sertraline 50 mg tablet 50 mg PO DAILY 01/16/23 01/16/23 History Allergies Allergy/AdvReac Type Severity Reaction Status Date / Time Latex, Natural Rubber Allergy Hives Verified 01/16/23 09:10 Assessment and Plan Assessment and plan (1) Encounter for sterilization: Code(s): Z30.2 - Encounter for sterilization Status: Acute (2) Left ovarian cyst: Code(s): N83.202 - Unspecified ovarian cyst, left side Status: Acute Plan consented for LSC bilateral salpingectomy for sterilization and left ovarian cystectomy, possible left oophorectomy. discussed RBA, will proceed. ancef.
--- NOTE | 2023-01-20 07:18 | WPDHPUPDATE1 ---
History and Physical Update Update Date/Time: 01/20/23 07:18 History and Physical has been reviewed, including an updated exam of the patient. There are NO changes in the patient's condition. Risks, benefits, and alternatives have been discussed and questions answered. Patient agrees to proceed with procedure.
[2023-01-20] MEDS: ceFAZolin 2 GM/D5W 50 ML 2 GM/50 ML BAG IVPB (07:26)
[2023-01-20] MEDS: BUPIVACAINE/EPINEPHRINE 0.25% 10 ML VIAL INFILTRATE (08:00)
--- NOTE | 2023-01-20 08:46 | W.PM.PROC2 ---
Procedure Note - Detailed Date of Procedure 01/20/23 Pre-op Diagnosis sterilization requested, Lt Ovarian Cyst Post-op Diagnosis Same Procedure Performed Laparoscopic Bilateral Salpingectomy and left ovarian cystectomy Surgeon Beatriz Garces MD Anesthesia General Indications undesired future fertility, large left ovarian cyst Findings left ovarian cyst was much smaller than on most recent ultrasound and had clearly ruptured recently. Description of Procedure The patient was taken to the OR and placed in [facility] lithotomy [facility] She received general anesthesia. A speculum was placed and the cervix grasped with a single tooth tenaculum and an acorn uterine manipulator placed easily. A madsen catheter had previously been placed. She had received preoperative antibiotics. A 5mm subumbilical skin incision was made and using direct visualization, the trocar was inserted intraperitoneally. The abdomen was insufflated and the pelvis inspected with the above findings. Bilateral 5mm incisions were made and trocars were placed under direct visualization. The right tube was grasped and elevated and using the Ligasure device, the tube was sequentially cauterized and ligated and removed through the trocar and sent to pathology. Similarly, on the left, the tube was removed using the Ligasure device. Hemostasis was noted. The left ovary was noted to have a cyst, but not as large as on the last ultrasound. It was floppy and already draining mucous/clear material. Using the ligasure, the floppy cyst wall was removed. The spontaneously drained mucous material was suctioned from the pelvis. The cyst wall was removed with an endobag after the umbilical incision was extended slightly to accomodate the bag. Hemostasis was again noted at all sites. The upper abdomen was inspected and noted to be normal. The trocars were removed and the Co2 was removed from the abdomen. The skin was closed with 4-0 vicryl and steri strips. The patient tolerated the procedure well and was taken to the recovery room in stable condition. EBL 15cc. Estimated Blood Loss 15 Drains No Packing No Pathology Yes Complications No immediate complications Condition Stable Disposition Same day
== END 2023-01-20 10:40 | disposition home or self-care (01) ==
PROVIDERS: Visit Provider Obstetrics & Gynecology
PROC: (CPT 49320; principal; 2023-01-20 07:30)
DX: Z30.2 Encounter for sterilization (principal); D27.1 Benign neoplasm of left ovary; F17.210 Nicotine dependence, cigarettes, uncomplicated; F17.290 Nicotine dependence, other tobacco product, uncomplicated
CPT/HCPCS: 58661; 58662; 88302; 88305; A9270; J0690; J1100; J1170; J1885; J2250; J2405; J2704; J3010; J7030; J7120

== ENCOUNTER 2024-05-14 10:26 | Outpatient (CLI) | payer OTHER, SELFPAY ==
[2024-05-14 11:07] LABS: Basophils Percent Auto 0.7 % (0.2-1.2); Eosinophils Absolute Auto 0.2 K/mm3 (0-0.3); Eosinophils Percent Auto 3.3 % (0-4.4); Hematocrit 37.6 % (37.0-47.0); Hemoglobin 11.7 g/dL (12.0-15.0); Immature Granulocyte Absolute 0.01 K/mm3 (0.00-0.031); Immature Granulocyte Percent A 0.2 % (0-0.5); Lymphocytes Absolute Auto 1.67 K/mm3 (0.9-3.2); Lymphocytes Percent Auto 29.3 % (18.3-44.2); Mean Corpuscular HGB Conc 31.1 g/dl (32-36); Mean Corpuscular Hemoglobin 29.7 pg (26-34); Mean Corpuscular Volume 95.4 fl (80-100); Mean Platelet Volume 10.1 fl (7.4-10.4); Monocytes Absolute Auto 0.4 K/mm3 (0.1-0.6); Monocytes Percent Auto 6.2 % (2.6-8.5); Neutrophils Absolute Auto 3.4 K/mm3 (1.3-6.7); Neutrophils Percent Auto 60.3 % (45.5-73.1); Platelet Count Result 346 k/mm3 (150-375); Red Blood Count 3.94 M/mm3 (4.2-5.4); Red Cell Distribution Width 14.5 % (11.5-14.5); White Blood Count 5.7 K/mm3 (4.5-10.0)
== END 2024-05-14 10:27 | disposition home or self-care (01) ==
PROVIDERS: PCP Family Medicine; Visit Provider Obstetrics & Gynecology
DX: Z01.812 Encounter for preprocedural laboratory examination (principal); N81.4 Uterovaginal prolapse, unspecified
CPT/HCPCS: 36415; 85025; 86850; 86900; 86901

== ENCOUNTER 2024-05-17 00:16 | Day surgery (SDC) | payer OTHER, SELFPAY ==
--- NOTE | 2024-04-03 06:49 | PM.IMHP ---
H&P: HPI History of Present Illness Date/Time: 04/03/24 06:49 Chief Complaint: Pelvic pain and pelvic congestion Narrative: 28-year-old multiparous patient admitted for robotic hysterectomy and bilateral salpingectomy secondary to pelvic pain and dyspareunia. She has pelvic congestion on ultrasound. She finds this to be i intolerable and this removed the uterus. She understands this will make her permanently infertile. Risks and benefits reviewed including but not exclusive of , aspiration pneumonia, bleeding, transfusion, perforation injury to bowel, bladder, ureters, or other internal organs with need for open laparotomy. She received the [employer] handout entitled hysterectomy as well as de August handout. Had all questions answered. She asked to proceed PMFSH Past Medical History Medical History Depression Surgical History Surgical History No pertinent past surgical history Social History Social History Smoking status: Current every day smoker Tobacco type: cigarettes and e-cigarettes/vaping Additional smoking assessment comments: CURRENTLY VAPING Alcohol intake: current Alcohol use details: VERY RARE Substance use: never Substance use type: does not use Lack of Transportation: No Lack of Food: Never True Current Housing: I Have Housing Concerned About Future Housing: No Difficulty Paying Gas/Electric Bills: No Difficulty Paying for Meds: No Currently Unemployed: No Education: High School Diploma/GED Difficulty w/ Childcare or Family Care: No Living arrangements: with family Spiritual care concerns: No Meds Home Medications and Allergies Home Medications Medication Instructions Recorded Confirmed Type sertraline 50 mg tablet 50 mg PO DAILY 01/16/23 01/20/23 History hydrocodone 5 mg-acetaminophen 325 1 tablet PO Q4H PRN pain #14 tabs 01/20/23 Rx mg tablet Allergies Allergy/AdvReac Type Severity Reaction Status Date / Time Latex, Natural Rubber Allergy Hives Verified 01/20/23 07:35 Exam Const: General: cooperative, healthy appearing and comfortable Nutritional Appearance: average body habitus Orientation/consciousness: oriented to person, oriented to place and oriented to time HENMT: Head: normal to inspection Resp: Effort & Inspection: normal respiratory effort Cardio: Rate: regular rate Rhythm: regular rhythm Heart sounds: S1 normal heart sound present and S2 normal heart sound present GI: Inspection: normal to inspection : External Female Exam: normal external appearance Speculum Exam - Vagina: normal appearance of the vagina Speculum Exam - Cervix: normal appearance of the cervix Bimanual exam- vagina & uterus: enlarged and Uterine tenderness Bimanual Exam- Adnexa, other: normal adnexae Assessment and Plan Assessment and plan (1) Pelvic pain: Code(s): R10.2 - Pelvic and perineal pain Status: Acute Assessment and Plan: Proceed with robotic total vaginal hysterectomy and bilateral salpingectomy
--- NOTE | 2024-05-07 14:06 | PC.NURSE ---
Report to the Outpatient Waiting Room, entrance under the green pavilion located off [facility], at time __11:3am____ on date 05-08-2024. Planned Procedure Time: ___1:30pm .? Time changes happen often and if your time is changed the preop area will call you the afternoon before. - You and your visitor will be asked to self-screen and do not enter if you have any COVID symptoms. Please call surgeon if you need to reschedule. - A mask is optional within the hospital at this time. Patients may have clear liquids (water, carbonated beverages, clear teas, apple juice) until 3 hours prior to surgery with a maximum of 20 ounces. - No food from midnight until time of surgery and no smoking - Take only the following medications with a SIP of water on the morning of surgery: zoloft DO NOT STOP ANY OF YOUR OTHER PRESCRIPTION MEDICATIONS PRIOR TO SURGERY EXCEPT THE FOLLOWING Medications to discontinue per physician n/a Please no make-up, nail iraqi, hairspray, perfume, deodorant, or body powder the day of surgery.? No jewelry (including any body piercings) or valuables the day of surgery, leave them at home.? Please take a shower or bath the night before, or the morning of, surgery with an antibacterial soap.? Wear comfortable, loose fitting clothing.? - Jewelry must be removed prior to entering the operating room.? Rings and piercings that are not removed may be cut off. - The hospital will not accept responsibility for valuables.? - Please leave all valuables, including medications, at home the day of surgery. If you are going home after surgery, a licensed taxicab driver must drive you home.? - NO public transportation without another adult if you receive anesthesia. - We recommend that an adult stay with you for 24 hours following discharge. - We also recommend that you do not drive, make important decision, drink alcoholic beverages, or take any drugs that were not prescribed by your health care provider for at least 24 hours after your discharge time. Follow any additional instructions given to you from your surgeon. Telephone instructions given to __Rickyduaneeden (patient) and asked if any additional questions and then verbalized understanding. Patient advised to call surgeon office or pre surgery nurse liaison [phone] if any additional questions.
[2024-05-07 14:15] VITALS: BMI 20.2
--- NOTE | 2024-05-14 13:08 | PM.IMHP ---
H&P: HPI History of Present Illness Date/Time: 05/14/24 13:08 Chief Complaint: Pelvic pain pelvic congestion with uterine prolapse Narrative: 28 year 4 para for a robotic total vaginal hysterectomy and bilateral salpingectomy secondary to prolapse pelvic pain and pelvic congestion. Ultrasound shows markedly congested uterus. She desires no further children and understands this to be a permanent procedure. Risks and benefits reviewed including but not exclusive of , aspiration pneumonia, bleeding, transfusion perforation injury to bowel bladder ureters or other internal organs with need for open laparotomy. She received the [employer] handout entitled hysterectomy will set the August and 0. She had all questions answered. She asked to proceed PMFSH Past Medical History Medical History Depression Surgical History Surgical History No pertinent past surgical history Social History Social History Years smoked: 17 Smoking status: Current every day smoker Tobacco type: cigarettes and e-cigarettes/vaping Second hand tobacco smoke exposure: No Additional smoking assessment comments: CURRENTLY VAPING Alcohol intake: current Drinks per week: 1 Alcohol use details: rarely Substance use: never Substance use type: does not use Last use: 05-07-24 Lack of Transportation: No Lack of Food: Never True Current Housing: I Have Housing Concerned About Future Housing: No Difficulty Paying Gas/Electric Bills: No Difficulty Paying for Meds: No Currently Unemployed: No Education: High School Diploma/GED Difficulty w/ Childcare or Family Care: No Living arrangements: with family Spiritual care concerns: No Meds Home Medications and Allergies Home Medications Medication Instructions Recorded Confirmed Type sertraline 50 mg tablet 50 mg PO DAILY 01/16/23 05/07/24 History Allergies Allergy/AdvReac Type Severity Reaction Status Date / Time Latex, Natural Rubber Allergy Hives Verified 05/07/24 14:14 Exam Const: General: cooperative, healthy appearing and comfortable Nutritional Appearance: average body habitus Orientation/consciousness: oriented to person, oriented to place and oriented to time HENMT: Head: normal to inspection Resp: Effort & Inspection: normal respiratory effort Cardio: Rate: regular rate Rhythm: regular rhythm Heart sounds: S1 normal heart sound present and S2 normal heart sound present GI: Inspection: normal to inspection : External Female Exam: normal external appearance Speculum Exam - Vagina: normal appearance of the vagina Speculum Exam - Cervix: normal appearance of the cervix (Second-degree prolapse present) Bimanual exam- vagina & uterus: enlarged and Uterus displaced (Secondary prolapse present) Bimanual Exam- Adnexa, other: normal adnexae Assessment and Plan Assessment and plan (1) Pelvic pain: Code(s): R10.2 - Pelvic and perineal pain Status: Acute (2) Pelvic congestion: Code(s): N94.89 - Other specified conditions associated with female genital organs and menstrual cycle Status: Acute (3) Uterine prolapse: Code(s): N81.4 - Uterovaginal prolapse, unspecified Status: Acute Assessment and Plan: Robotic total vaginal hysterectomy and bilateral salpingectomy
[2024-05-17] VITALS (12 sets, daily range): BP systolic 107–131; BP diastolic 80–90; PULSE 50–74; RESP 12–20; TEMP 35.8–36.4; O2SAT 99–100
--- NOTE | 2024-05-17 07:13 | WPDHPUPDATE1 ---
History and Physical Update Update Date/Time: 05/17/24 07:13 History and Physical has been reviewed, including an updated exam of the patient. There are NO changes in the patient's condition. Risks, benefits, and alternatives have been discussed and questions answered. Patient agrees to proceed with procedure.
--- NOTE | 2024-05-17 07:57 | P.PNAN_ITS ---
Anes - Initial Pre Proc Eval Procedure: Operation Date: 05/17/24 11:30 Proposed Procedures p Robotic Assisted Total Vaginal Hysterectomy with Bilateral Salpingectomy - Elmer Rojas MD Date/Time: 05/17/24 07:57 Surgeon: Elmer Rojas MD Pre Op Diagnosis: Pelvic Congestion, Pelvic Pain, Uterine Prolapse Patient Data Age: 28 Gender: F Height: 1.65 m Weight: 55.3 kg Allergies Allergy/AdvReac Type Severity Reaction Status Date / Time Latex, Natural Rubber Allergy Hives Verified 05/17/24 10:57 Home Medications Medication Instructions Recorded Confirmed Type sertraline 50 mg tablet 50 mg PO DAILY 01/16/23 05/07/24 History hydrocodone 5 mg-acetaminophen 325 1 tablet PO Q4H PRN pain #20 tabs 05/17/24 Rx mg tablet Patient hx anesthesia problems: none Family hx anesthesia problems: none Results Review: All pre-operative results and documents have been reviewed as part of the pre- operative evaluation. [facility] Past Medical History Medical History (Updated 05/17/24 @ 07:58 by Heriberto Kim DO) Anemia Asthma Depression Surgical History Surgical History (Updated 05/17/24 @ 07:58 by Heriberto Kim DO) History of History of tubal ligation Social History Social History Years smoked: 17 Smoking status: Current every day smoker Tobacco type: cigarettes and e-cigarettes/vaping Second hand tobacco smoke exposure: No Additional smoking assessment comments: CURRENTLY VAPING Alcohol intake: current Drinks per week: 1 Alcohol use details: rarely Substance use: never Substance use type: does not use Last use: 05-07-24 Lack of Transportation: No Lack of Food: Never True Current Housing: I Have Housing Concerned About Future Housing: No Difficulty Paying Gas/Electric Bills: No Difficulty Paying for Meds: No Currently Unemployed: No Education: High School Diploma/GED Difficulty w/ Childcare or Family Care: No Living arrangements: with family Spiritual care concerns: No Anes - Eval Final PreProcedure Day of Procedure 05/17/24 07:58 Patient weight: normal Heart: regular rate and rhythm Lungs: clear to auscultation Airway: Mallampati scale class 1 Neurological: alert and oriented Last oral intake: >/= 8 hours ASA classification: II Emergent: no Anesthetic plan: proceed Anesthesia type and monitoring: general ETT and standard monitoring Results Review: All pre-operative results and documents have been reviewed as part of the pre- operative evaluation. Informed Consent: The patient's anesthetic plan and its attendant risks and benefits were discussed with the patient/family/POA. Questions were solicited and answers provided to the satisfaction of the patient/family/POA.
[2024-05-17] MEDS: LACTATED RINGERS 1,000 ML 30 ML IV CONT ×2 (10:40→13:18)
[2024-05-17] MEDS: KETOROLAC 15 MG/ML VIAL (*BKC) IV PUSH (10:59)
[2024-05-17] MEDS: ACETAMINOPHEN 500 MG TABLET 1000 MG PO (10:59)
[2024-05-17] MEDS: ceFAZolin 2 GM/D5W 50 ML 2 GM/50 ML BAG IVPB (11:56)
--- NOTE | 2024-05-17 13:04 | P.OP_ITS ---
Procedure Note - Detailed Date of Procedure 05/17/24 Pre-op Diagnosis Pelvic Congestion, Pelvic Pain, Uterine Prolapse Post-op Diagnosis Same Procedure Performed Robotic total vaginal hysterectomy bilateral salpingectomy Surgeon Elmer Rojas MD Anesthesia General Indications since 28-year-old female with pelvic congestion pelvic pain dyspareunia prolapse Findings mild prolapse. Large tortuous blood vessels surrounding the uterus. Tubes were surgically absent Description of Procedure the patient was prepped and draped in the normal sterile fashion placed in dorsal lithotomy position. Under excellent general endotracheal anesthesia weighted speculum placed in posterior fornix of vagina. Anterior lip of the cervix grasped with single-tooth tenaculum. Uterus sounded to 10cm. Serial dilatation with fragmented dilators per 4 followed by passage of the 8. DMITRIY and the 3. Cold cup. Next the 16 Chinese catheter was placed in the bladder drained of clear urine. The weighted speculum the single-tooth removed. The gloves were changed Supraumbilical incision made the Veress needle passed in the abdomen. Abdomen filled with CO2 gas to 15mm Hg. The 8mm trocar advanced in the abdomen. Downs amarilis visualized and no injury seen. Patient placed in Trendelenburg. Right and left lateral quadrant incisions made 8mm trocars advanced under direct visualization. A right upper quadrant incision made the 8mm trocar advanced under direct visualization assuring no injury. The robot was docked. Attention was turned to the residential child care counselor. The left round ligament was grasped, burned, cut. Anteriorly a bladder flap was formed by sharply dissecting the peritoneum and bringing this to the opposite round ligament was clamped, burned, cut. Both tubes were surgically absent. the utero-ovarian ligament was skeletonized clamping burning cutting and bringing this to level of previously cut round ligament. On the right this was repeated in exactly the same way the utero-ovarian ligaments were clamped, burned, cut and brought to the level of previous cut round ligament. Cardinal broad ligaments were then skeletonized clamping burning cutting and bringing this down lateral edge of the uterus until the large tortuous uterine vessels could be seen. These were clamped, burned, cut. In similar fashion the cardinal broad ligaments on the right were skeletonized clamping burning cutting and bringing this down the lateral edge of the uterus until large uterine vessels could be seen on the right these were individually clamped, burned, cut. Hemostasis was assured and blanching of the uterus was noted. A colpotomy incision made in the cervix uterus removed through the vagina. The vagina was then closed with continuous running 0V lock from lateral edge to lateral edge and back to the midline. Irrigation undertaken until clear and the raw surface area was sprinkled with the [place] term hemostasis was assured in the robot was undocked. The gas removed from the abdomen the trocars removed. The the incisions closed with 4 Monocryl and glue and the patient was awakened and went to [facility] in satisfactory condition. All sponge, needle, instrument counts were correct. There were no immediate complications Estimated Blood Loss 25 Drains No Packing No Pathology Yes Complications No immediate complications Condition Stable Disposition PACU
--- NOTE | 2024-05-17 13:09 | PM.DS ---
DS: Admitting Diagnosis Discharge Date 05/17/2024 Admitting Diagnosis pelvic congestion/ pelvic pain/uterine prolapse DS: Discharge Diagnosis Discharge Diagnosis (1) Uterine prolapse: Code(s): N81.4 - Uterovaginal prolapse, unspecified Status: Acute (2) Pelvic congestion: Code(s): N94.89 - Other specified conditions associated with female genital organs and menstrual cycle Status: Acute (3) Pelvic pain: Code(s): R10.2 - Pelvic and perineal pain Status: Acute DS: Summary Hospital Course Reason for hospitalization: patient was admitted on 05/17/2024 for robotic total vaginal hysterectomy and bilateral salpingectomy. Hospital Course: Patient's hospital course unremarkable. She remained afebrile. She was up, voiding without difficulty, eating regular diet, ambulating, a generally without complaints. Time Spent with Patient Time attestation: Total time spent providing and/or coordinating discharge services: Exam Const: General: cooperative, healthy appearing and comfortable Nutritional Appearance: average body habitus Orientation/consciousness: oriented to person, oriented to place and oriented to time HENMT: Head: normal to inspection Resp: Effort & Inspection: normal respiratory effort Cardio: Rate: regular rate Rhythm: regular rhythm Heart sounds: S1 normal heart sound present and S2 normal heart sound present GI: Inspection: normal to inspection and incision ( Wounds were clean dry and intact) DS: Data Data Completed and Pending Pending studies at discharge: Pending at discharge 05/17/24 12:44 Surgical [PTH] Routine Surgical [PTH] Routine Discharge Plan Discharge Patient Disposition: Home, Self-Care Stand Alone Forms: General Discharge Instructions Follow-up/Referrals: Elmer Valladares MD [Physician] - Discharge Medications: New hydrocodone-acetaminophen 5-325 mg tablet 1 tablet PO Q4H PRN (Reason: pain) Qty: 20 0RF No Action sertraline 50 mg tablet 50 mg PO DAILY
[2024-05-17] MEDS: fentaNYL CITRATE INJ (*CRX) 100 MCG/2 ML VIAL 25 MCG IV PUSH (14:23)
--- NOTE | 2024-05-17 14:40 | ADMGEN ---
This patient, Breann Mckeon, was admitted to [facility] Surg Room 326-01. Patient/family oriented to hospital policies and general routines including ID bracelet, bed and alarms, visiting hours, pain management, procedures, bathroom and other care routines, personal items, smoking policy, room service/diet, and visiting hours. Information on how to activate the Rapid Response Team has been discussed. Patient/Family are encouraged to report perceived risks to care and to ask questions if they do not understand what they are told or what they should do.
[2024-05-17] MEDS: SIMETHICONE 80 MG TAB.CHEW PO (16:33)
[2024-05-17] MEDS: DOCUSATE SODIUM 100 MG CAPSULE PO (16:33)
[2024-05-17] MEDS: HYDROcodone/acetaminophen (*CRX) 5-325 MG TABLET 1 TAB PO ×2 (16:33→23:36)
[2024-05-18 03:45] VITALS: BP 105/76; PULSE 67; RESP 18; TEMP 36.4; O2SAT 98
[2024-05-18 07:08] LABS: Basophils Percent Auto 0.2 % (0.2-1.2); Eosinophils Percent Auto 0.2 % (0-4.4); Hematocrit 35.1 % (37.0-47.0); Hemoglobin 11.2 g/dL (12.0-15.0); Immature Granulocyte Absolute 0.05 K/mm3 (0.00-0.031); Immature Granulocyte Percent A 0.4 % (0-0.5); Lymphocytes Absolute Auto 1.82 K/mm3 (0.9-3.2); Lymphocytes Percent Auto 13.7 % (18.3-44.2); Mean Corpuscular HGB Conc 31.9 g/dl (32-36); Mean Corpuscular Hemoglobin 30.3 pg (26-34); Mean Corpuscular Volume 94.9 fl (80-100); Mean Platelet Volume 10.6 fl (7.4-10.4); Monocytes Absolute Auto 0.9 K/mm3 (0.1-0.6); Monocytes Percent Auto 6.6 % (2.6-8.5); Neutrophils Absolute Auto 10.5 K/mm3 (1.3-6.7); Neutrophils Percent Auto 78.9 % (45.5-73.1); Platelet Count Result 321 k/mm3 (150-375); Red Cell Distribution Width 14.3 % (11.5-14.5); White Blood Count 13.3 K/mm3 (4.5-10.0)
--- NOTE | 2024-05-18 07:33 | PM.GYNPNOP ---
PRIVATE INVESTIGATOR - A/P Postoperative Procedures: Procedures Operation Date: 05/17/24 11:30 Actual Procedure Side Surgeon p Robotic Assisted Total Vaginal Hysterectomy with Bilateral Salpingectomy Bilateral Elmer Rojas MD Postoperative day: 1 Postoperative status: doing well Postoperative plan: routine post-op care, see orders, ambulate, advance diet, voiding trials and discharge Time Spent With Patient Time: Total time spent is greater than 50% in coordination of care (as documented) at patient's floor/unit and/or counseling patient: Time with patient: less than 15 minutes PRIVATE INVESTIGATOR- PN:Subj Post-Op Subjective Date/time seen: 05/18/24 07:33 Subjective: patient reports feeling better, patient has no complaints, patient desires discharge, pain is well controlled and patient is tolerating oral intake Exam Const: General: cooperative, healthy appearing and comfortable Nutritional Appearance: average body habitus Orientation/consciousness: oriented to person, oriented to place and oriented to time Resp: Effort & Inspection: normal respiratory effort Cardio: Rate: regular rate Rhythm: regular rhythm Heart sounds: S1 normal heart sound present and S2 normal heart sound present GI: Inspection: normal to inspection and incision (cdi) PRIVATE INVESTIGATOR - PN: Obj Data Vital Signs Vital Signs: Vital Signs - 24 hr 05/17/24 10:59 05/17/24 13:18 05/17/24 13:30 Temperature 97.2 F L 97.4 F L Pulse Rate 71 64 50 L Respiratory Rate 18 15 12 Blood Pressure 110/85 123/87 131/84 Pulse Oximetry 100 100 100 Oxygen Delivery Room Air Simple Face Mask Simple Face Mask Oxygen Flow Rate 8 8 05/17/24 13:45 05/17/24 14:00 05/17/24 14:15 Temperature Pulse Rate 59 L 74 56 L Respiratory Rate 12 12 12 Blood Pressure 107/80 120/83 118/81 Pulse Oximetry 100 100 100 Oxygen Delivery Room Air Room Air Room Air Oxygen Flow Rate 05/17/24 14:29 05/17/24 14:34 05/17/24 14:49 Temperature 97.1 F L 97.3 F L Pulse Rate 54 L 59 L 57 L Respiratory Rate 12 14 14 Blood Pressure 126/90 114/80 120/84 Pulse Oximetry 100 100 100 Oxygen Delivery Room Air Oxygen Flow Rate 05/17/24 15:19 05/17/24 16:19 05/17/24 20:19 Temperature 96.5 F L 96.9 F L 97.5 F L Pulse Rate 63 60 70 Respiratory Rate 14 16 20 Blood Pressure 127/85 119/88 112/84 Pulse Oximetry 100 100 99 Oxygen Delivery Oxygen Flow Rate 05/17/24 20:00 05/18/24 03:45 Temperature 97.5 F L Pulse Rate 67 Respiratory Rate 18 Blood Pressure 105/76 Pulse Oximetry 98 Oxygen Delivery Room Air Oxygen Flow Rate Intake/Output Intake/Output: Intake & Output 05/15/24 05/16/24 05/17/24 05/18/24 23:59 23:59 23:59 23:59 Intake Total 550 200 Output Total 260 Balance 290 200 Meds/Results Medications: Active Medications Generic Name Dose Route Start Last Admin Trade Name Freq PRN Reason Stop Dose Admin Hydrocodone Bitart/Acetaminophen 1 tab 05/17/24 14:34 05/17/24 23:36 Hydrocodone/Acetaminophen (*Crx) 5-325 Mg Tablet PO 1 tab Q3H PRN Administration Pain Rated 5 or Less Hydrocodone Bitart/Acetaminophen 1 tab 05/17/24 14:34 Hydrocodone/Acetaminophen (*Crx) 10-325 Mg Tablet PO Q3H PRN Pain Rated 6 or Greater Docusate Sodium 100 mg 05/17/24 17:00 05/17/24 16:33 Docusate Sodium 100 Mg Capsule PO 100 mg BID SAMANTHA Administration Enoxaparin Sodium 40 mg 05/18/24 09:00 Enoxaparin 40 Mg/0.4 Ml Syringe SUB-Q DAILY SAMANTHA Ibuprofen 600 mg 05/17/24 14:34 Ibuprofen 600 Mg Tablet PO Q6H PRN Cramping Ketorolac Tromethamine 30 mg 05/17/24 14:34 Ketorolac 30 Mg/Ml Vial (*Bkc) IV PUSH 05/22/24 14:33 Q6H PRN Pain Rated 4-6 Naloxone HCl 0.1 mg 05/17/24 14:34 Naloxone Hcl 0.4 Mg/Ml Vial IV PUSH Q2M PRN Respiratory rate less than 10 Ondansetron HCl 4 mg 05/17/24 14:34 Ondansetron Inj 4 Mg/2 Ml Vial IV PUSH Q6H PRN Nausea And Vomiting Simethicone 80 mg
[2024-05-18] MEDS: HYDROcodone/acetaminophen (*CRX) 5-325 MG TABLET 1 TAB PO (08:32)
[2024-05-18] MEDS: DOCUSATE SODIUM 100 MG CAPSULE PO (08:32)
[2024-05-18] MEDS: SIMETHICONE 80 MG TAB.CHEW PO (08:33)
== END 2024-05-18 10:08 | disposition home or self-care (01) ==
LOC: ANHSURGERY 10:12 → ANH3MEDSUR 14:38
PROVIDERS: PCP Family Medicine; Visit Provider Obstetrics & Gynecology
PROC: (CPT 58552; principal; 2024-05-17 11:30)
DX: N81.4 Uterovaginal prolapse, unspecified (principal); N94.89 Other specified conditions associated with female genital organs and menstrual cycle; N94.10 Unspecified dyspareunia; F32.A Depression, unspecified; F17.290 Nicotine dependence, other tobacco product, uncomplicated
CPT/HCPCS: 58552; S2900; 36415; 85025; 86850; 86900; 86901; 88307; A9270; J0690; J1100; J1170; J1885; J2250; J2405; J2704; J3010; J7030; J7120